=== PATIENT | male | born 1990 | race Asian ===

== ENCOUNTER 2017-08-21 16:44 | Emergency (ER) | payer OTHER ==
[~2017-08-21] VITALS: Ht 167.6 cm; Wt 80.3 kg
[2017-08-21 16:47] VITALS: BP 150/67; PULSE 81; RESP 16; TEMP 98.5; O2SAT 97
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
[2017-08-21] MEDS ORDERED: BACL10TA PO (17:06)
[2017-08-21] MEDS ORDERED: IBUP1TAB7 PO (17:06)
== END 2017-08-21 17:25 | disposition home or self-care (01) ==
LOC: PHEFT 16:44
DX: S16.1XXA Strain of muscle, fascia and tendon at neck level, initial encounter (principal); S29.012A Strain of muscle and tendon of back wall of thorax, initial encounter; V49.49XA Driver injured in collision with other motor vehicles in traffic accident, initial encounter; Z72.0 Tobacco use
CPT/HCPCS: 99283